=== PATIENT | female | born 2000 | race Caucasian/White ===

== ENCOUNTER 2021-02-11 17:09 | Emergency (ER) | payer BC ==
[2021-02-11] MEDS ORDERED: IBUPROFEN 400 MG TABLET (FP) PO ONE (17:40)
[2021-02-11 17:42] VITALS: BP 130/82; PULSE 102; TEMP 98.7; BMI 34.4
[2021-02-11] MEDS ORDERED: IBUPROFEN 600 MG TABLET (FP) PO ONE ×2 (17:44→17:45)
== END 2021-02-11 18:57 | disposition home or self-care (01) ==
LOC: FER 17:09
DX: M25.461 Effusion, right knee (principal); M25.561 Pain in right knee
CPT/HCPCS: 73562-TC-RT-FY; 99283-25